=== PATIENT | female | born 1970 | race Caucasian/White ===

== ENCOUNTER 2017-04-25 17:29 | Emergency (ER) | payer OTHER ==
[~2017-04-25] VITALS: Ht 165.1 cm; Wt 90.7 kg
[~2017-04-25 17:29] MED LIST: AUGMENTIN 875 M1 TAB PO; BYSTOLIC2.5 M1 PO; FLAG500 PO; FLEXERIL10 MG PO; FLONASE ALLERG9.9 ML NAS; GARLIC PO; HYDROCHLOROTHIA50 M1 PO; IBUPROFEN800 M1 PO; LISINOPRIL10 MG PO; LOMOTIL 0.025 M1 TAB PO; MACROBID 100 M100 MG PO; MEDROL DOSEPAK1 PAC PO; PYRIDIUM200 M1 PO; SYNTHROID0.025 MG PO; SYNTHROID150 MCG PO; TRAMADOL50 MG PO; TURMERIC PO; ULTRAM50 M1 PO; VITAMIN B-121000 MC3 PO; VITAMIN D32000 UNIT PO
[2017-04-25 18:14] LABS: ABSOLUTE BASOPHIL COUNT 0 /CUMM (0.0-0.2); ABSOLUTE EOSINOPHIL COUNT 0.4 /CUMM (0.0-0.7); ABSOLUTE GRANULOCYTE CT 4.4 /CUMM (1.4-6.5); ABSOLUTE LYMPH COUNT 2.4 /CUMM (1.2-3.4); ABSOLUTE MONOCYTE COUNT 0.5 /CUMM (0.10-0.60); BASOPHIL % 0.4 % (0.0-2.0); EOSINOPHIL % 5.5 % (0-5); GRANULOCYTE % 56.6 % (42.2-75.2); HEMATOCRIT 38.1 % (37-47); MEAN CORPUSCULAR HGB CONC 34.3 G/DL (33.0-37.0); MEAN CORPUSCULAR VOLUME 93.6 FL (81.0-99.0); MEAN PLATELET VOLUME 7.3 FL (7.4-10.4); PLATELET COUNT 357 /CUMM (130-400); RBC DISTRIBUTION WIDTH 12.6 % (11.5-14.5); RED BLOOD CELL CT 4.07 /CUMM (4.20-5.40); WHITE BLOOD CELL COUNT 7.9 /CUMM (4.8-10.8)
--- NOTE | 2017-04-25 19:12 | CT SCAN REPORT ---
EXAMINATION: CT HEAD WITHOUT CONTRAST CLINICAL INFORMATION: Dizziness. Nausea. COMPARISON: None TECHNIQUE: Contiguous axial imaging was performed from the skull base to vertex without intravenous administration of contrast. DLP: 614.14 mGy-cm FINDINGS: There is no evidence of acute intracranial hemorrhage or territorial infarction. No abnormal mass effect or midline shift is seen. Wilson to white matter differentiation is well preserved. No extra-axial fluid collections are identified. The ventricles are normal in size. There is no abnormal attenuation within the brain parenchyma. The osseous structures and soft tissues are normal. The mastoid air cells and visualized portions of the paranasal sinuses are well aerated. IMPRESSION: No acute intracranial pathology.
[2017-04-25 20:41] VITALS: BP 143/88
--- NOTE | 2017-04-25 20:57 | ED AMS/SEIZURE/WEAK/DIZZY ---
History of Present Illness General Chief Complaint: Dizziness Stated Complaint: VERTIGO Source: patient, old records Exam Limitations: no limitations Vital Signs & Intake/Output Vital Signs & Intake/Output Vital Signs Date Time Temp Pulse Resp B/P B/P Pulse O2 O2 Flow FiO2 Mean Ox Delivery Rate 04/25 2043 98 Room Air 04/25 2041 98.7 77 16 143/88 98 Room Air 04/25 175 98.7 78 15 154/84 98 Room Air Room Air ED Intake and Output 04/26 0000 04/25 1200 Intake Total Output Total Balance Patient 200 lb Weight Weight Reported by Patient Measurement Method Allergies Coded Allergies: ciprofloxacin (From CIPRO) (RASH 04/25/17) lisinopril (ANGIODEMA 04/25/17) amlodipine (PEDAL EDEMA THAT TRAVELED UP LEG 04/25/17) codeine (N/V 04/25/17) Reconcile Medications Cholecalciferol (Vitamin D3) (Vitamin D3) 2,000 UNIT CAPSULE 1 CAP PO DAILY SUPPLEMENT (Reported) Cyanocobalamin (Vitamin B-12) (Unknown Strength) TABLET (Unknown Dose) PO DAILY SUPPLEMENT (Reported) Diazepam (Valium) 2 MG TABLET 1 TAB PO BID PRN dizziness Fluticasone Propionate (Flonase Allergy Relief) (Unknown Strength) SPRAY.SUSP (Unknown Dose) JASE AD PRN NASAL CONGESTION (Reported) Ibuprofen 800 MG TABLET 1 TAB PO TID PRN PAIN Levothyroxine Sodium (Synthroid) 150 MCG TABLET 1 TAB PO QAM THYROID ( Reported) Nebivolol HCl (Bystolic) 2.5 MG TABLET 1 TAB PO QAM BP (Reported) Nitrofurantoin Monohyd/M-Cryst (Macrobid 100 MG Capsule) 100 MG CAPSULE 1 CAP PO BID cystitis with food Phenazopyridine HCl (Pyridium) 200 MG TABLET 1 TAB PO TID dysuria Tramadol HCl (Ultram) 50 MG TABLET 1-2 TAB PO Q6PRN PRN severe pain [TUMERIC/GARLIC] 1 TAB PO DAILY SUPPLEMENT (Reported) Triage Note: PT TO ED FOR C/C OF VERTIGO TYPE SYMPTOMS. PT REPORTS THE SENSATION IN HER HEAD IS DIFFICULT TO DESCRIBE BUT HAS PRESSURE AND "WISHY WASHY FEELING". USUALLY GETS SINUS ISSUES WITH THE VERTIGO BUT HASN'T HAD ANY SINUS ISSUES TODAY. +L EAR RINGING AND R EAR FEELS MUFFLED. ALL NEUROS INTACT. PER DAUGHTER, PT HAS BEEN MORE SLOW TO RESPOND THAN NORMAL. Triage Nurses Notes Reviewed? yes Onset: Abrupt Duration: minute(s): ( ), day(s): (3), constant Timing: recent history Injury Environment: home Severity: moderate Severity Numbers: 5 No Modifying Factors: none Associated Symptoms: DENIES HPI: 46-year-old female with history of vertigo hypertension hypothyroid presents the ER stating that the past few days she has been feeling unsteady on her feet dizzy. She reports history of vertigo in the past and states this feels similar. She states she took 2 old meclizine without improvement. No recent fall or head trauma no chest pain palpitations lightheadedness nausea vomiting. She denies any recent upper respiratory infections no sinus pressure rhinorrhea congestion. She denies headache vision changes. She states she has had ringing in both of her ears however Past History Travel History Traveled to [place] past 21 day No Medical History Any Pertinent Medical History? see below for history Neurological: vertigo EENT: allergies Cardiovascular: hypertension Respiratory: NONE Gastrointestinal: GALLBLADDER SURG Renal: NONE Musculoskeletal: fracture, R WRIST OPEN FX/SX Endocrine: hypothyroidism Surgical History Surgical History: , hysterectomy, BUNIONECTOMY R WRIST OPEN FX Psychosocial History Who do you live with Family What is your primary language Guyanese Tobacco Use: Quit >30 days ago ETOH Use: denies use Illicit Drug Use: denies illicit drug use Family History Hx Contributory? No Review of Systems Review of Systems Constitutional: Reports: see HPI. Comments Review of systems: See HPI, All other systems negative. Constitutional, no chills no fever, HEENT: no sore throat no congestio Cardiovascular: No chest pain , Skin: no rashes, no change in skin Respiratory: No dyspnea no cough no sputum GI: No nausea no vomiting, Muscle skeletal: No joint pain, no back pain, no neck pain, Neurologic: , no headache Psych: No stress Heme/endocrine: No bruising Immunology: No lymphadenopathy Physical Exam Physical Exam General Appearance: well developed/nourished, no apparent distress, alert, awake , comfortable Comments: Well-developed well-nourished person in no acute distress HEENT: Normal EENT exam; PERRL, EOMI, no nystagmus. HEAD is atraumatic. moist mucous membranes. Neck: Supple, no lymphadenopathy, normal range of motion Back: Nontender, no CVA tenderness. Full range of motion Cardiovascular: Regular rate and rhythms no murmurs Respiratory: No respiratory distress. Patient speaking in full complete sentences. Breath sounds clear to auscultation bilaterally: NO W/R/R Extremity: No edema, full range of motion of extremities Neuro: Alert oriented x3, motor sensory normal, cranial nerves II through XII grossly intact. There were no obvious focal neurologic abnormalities. Skin: No appreciable rash on exposed skin, skin is warm and dry. Psych: Mood and affect is normal, memory and judgment is normal. Core Measures ACS in differential dx? No CVA/TIA Diagnosis No Sepsis Present: No Sepsis Focused Exam Completed? No Progress Differential Diagnosis: arrythmia, anemia, CVA/stroke, electrolyte imbalance, labrynthitis, multiple sclerosis, subarachnoid Hem., vertebrobasilar insuff Plan of Care: Orders Procedure Date/time Status TROPONIN LEVEL 04/25 1801 Complete MAGNESIUM 04/25 1801 Complete HUMAN BETA HCG SCREEN 04/25 1801 Complete COMPREHENSIVE METABOLIC PANEL 04/25 1801 Complete CBC WITHOUT DIFFERENTIAL 04/25 1801 Complete Laboratory Tests 04/25/17 1806: Anion Gap 11, Estimated GFR > 60, BUN/Creatinine Ratio 14.3, Glucose 152 H, Calcium 9.5, Magnesium 2.1, Total Bilirubin 0.3, AST 29, ALT 33, Alkaline Phosphatase 108, Troponin I < 0.01, Total Protein 7.3, Albumin 4.1, Globulin 3.2 , Albumin/Globulin Ratio 1.3, Total Beta HCG NEGATIVE, CBC w Diff NO MAN DIFF REQ, RBC 4.07 L, MCV 93.6, MCH 32.0 H, RDW 12.6, MPV 7.3 L, Gran % 56.6, Lymphocytes % 30.6, Monocytes % 6.9, Eosinophils % 5.5 H, Basophils % 0.4, Absolute Granulocytes 4.4, Absolute Lymphocytes 2.4, Absolute Monocytes 0.5, Absolute Eosinophils 0.4, Absolute Basophils 0, PUBS MCHC 34.3 Labs and CAT scan were ordered from triage. On my evaluation patient appears well sitting upright discussed with her the plan of care she reports history of vertigo in the past with similar symptoms. I discussed with the patient at length all of their results. I had an extensive conversation regarding need for close follow up with their primary care physician this week as well as return precautions. I answered all of their questions, they feel comfortable with the plan and follow-up care. I discussed with the patient/family the medications that they will receive. I gave them signs and symptoms that could indicate an adverse reaction. I have advised them to limit their activities until they can see how they respond to the medication. Diagnostic Imaging: Viewed by Me: CT Scan. Discussed w/RAD: CT Scan. CXR Impression: PATIENT: KING GOODE PRESENT AGE: 46 PATIENT ACCOUNT NO: [id number] : 68 LOCATION: [facility] ORDERING PHYSICIAN: Martin CORRIGAN SERVICE DATE: 04/25/17 EXAM TYPE: CAT - CT HEAD WO IV CONTRAST EXAMINATION: CT HEAD WITHOUT CONTRAST CLINICAL INFORMATION: Dizziness. Nausea. COMPARISON: None TECHNIQUE: Contiguous axial imaging was performed from the skull base to vertex without intravenous administration of contrast. DLP: 614.14 mGy-cm FINDINGS: There is no evidence of acute intracranial hemorrhage or territorial infarction. No abnormal mass effect or midline shift is seen. Wilson to white matter differentiation is well preserved. No extra-axial fluid collections are identified. The ventricles are normal in size. There is no abnormal attenuation within the brain parenchyma. The osseous structures and soft tissues are normal. The mastoid air cells and visualized portions of the paranasal sinuses are well aerated. IMPRESSION: No acute intracranial pathology. DICTATED BY: Rupert Bailey MD DATE/TIME DICTATED:04/25/171907 RAD TECH :SCOUT DATE/TIME TRANSCRIBED:04/25/171907 CONFIDENTIAL, DO NOT COPY WITHOUT APPROPRIATE AUTHORIZATION. <Electronically signed in Other Vendor System> SIGNED BY: Rupert Bailey MD 04/25/171911 Initial ED EKG: none Departure Departure Time of Disposition: 2103 Disposition: HOME OR SELF CARE Condition: Stable Clinical Impression Primary Impression: Vertigo Referrals: Swapna Dumont (PCP/Family) Josemanuel Clarke MD Additional Instructions: follow up with ear nose throat physician dr clarke. valium as discussed for your dizziness. use caution as this will make you drowsy. no driving while taking this medication. return to the ER with any concerns Departure Forms: Customer Survey General Discharge Information Prescriptions: Current Visit Scripts Diazepam (Valium) 1 TAB PO BID PRN dizziness #12 TAB
[2017-04-25] MEDS ORDERED: VALIUM2 M1 PO (21:06)
== END 2017-04-25 21:21 ==
LOC: ERH 17:29
PROVIDERS: Physician Assistant Medical
DX: R42 Dizziness and giddiness (principal)